=== PATIENT | male | born 1995 | race Hispanic/Latino ===

== ENCOUNTER 2020-08-01 17:24 | Emergency (ER) | payer OTHER, SELFPAY ==
[~2020-08-01 17:24] MED LIST: Iopamidol-370 76% 500 ML 1 ML ONE
[2020-08-01] MEDS ORDERED: Boostrix 0.5 ML (Tdap) VIAL ONE (17:52)
[2020-08-01 18:13] LABS: #Basophils 0.1 thou/uL (0.0-0.2); #Eosinphils 0.1 thou/uL (0.0-0.7); #Lymphocytes 1.8 thou/uL (1.20-3.40); #Monocytes 0.5 thou/uL (0.11-0.59); #Neutrophils 6.9 thou/uL (1.40-6.50); %Basophils 0.7 % (0.0-1.0); %Eosinophils 1.2 % (0.0-10.0); %Lymphocytes 19.3 % (21.0-51.0); %Monocytes 5.7 % (0.0-10.0); %Neutrophils 73.1 % (42.0-75.0); Hemoglobin 16.9 g/dL (14.0-18.0); Mean Platelet Volume 9.4 fL (7.4-10.4); Platelet Count 183 thou/uL (130-400); RBC Distribution Width 11.8 % (11.5-14.5); Red Blood Cell (RBC) Count 5.28 mill/uL (4.70-6.10); White Blood Cell (WBC) Count 9.4 thou/uL (4.8-10.8)
[2020-08-01 18:33] LABS: ALT (SGPT) 260 U/L (8-55); AST (SGOT) 200 U/L (5-34); Albumin 4.3 g/dL (3.5-5.0); Alcohol 301 mg/dL (Less than 10); Alkaline Phosphatase 104 U/L (40-110); Anion Gap 16 mmol/L (10-20); BUN (Urea Nitrogen) 10 mg/dL (8.9-20.6); Bilirubin, Total 0.5 mg/dL (0.2-1.2); Calc. Creatinine Clearance 0 mL/min (70-130); Calcium 8.8 mg/dL (7.8-10.44); Carbon Dioxide 24 mmol/L (22-29); Chloride 106 mmol/L (98-107); Globulin 3.6 g/dL (2.4-3.5); Glucose 130 mg/dL (70-105); Potassium 3.7 mmol/L (3.5-5.1); Protein, Total 7.9 g/dL (6.0-8.3); Sodium 142 mmol/L (136-145)
[2020-08-01] MEDS ORDERED: Lidocaine 1% w/Epinephrine 1:100K 20 ML VIAL ONE (19:20)
[2020-08-01] MEDS ORDERED: Bacitracin 1 PK ONE (20:53)
== END 2020-08-01 21:01 | disposition home or self-care (01) ==
LOC: EDBD 17:24 → ERS 17:24
DX: S02.2XXA Fracture of nasal bones, initial encounter for closed fracture (principal); S01.112A Laceration without foreign body of left eyelid and periocular area, initial encounter; S30.1XXA Contusion of abdominal wall, initial encounter; S60.511A Abrasion of right hand, initial encounter; F10.129 Alcohol abuse with intoxication, unspecified; R94.5 Abnormal results of liver function studies; V49.9XXA Car occupant (driver) (passenger) injured in unspecified traffic accident, initial encounter
CPT/HCPCS: 12013; 70450; 70486; 71260; 72125; 74177; 80053; 80307; 85025; 90471; 90715; 93005; Q9967